=== PATIENT | female | born 1980 | race African-American/Black ===

== ENCOUNTER 2016-11-28 07:00 | Inpatient (IN) | payer BC ==
[~2016-11-28] VITALS: Ht 162.6 cm; Wt 60.3 kg
--- NOTE | ~2016-11-28 | HP ---
Unit #: [id number] #: [id number] Patient: BRIANNE BLACKMON [id number] [facility] [address] [place] [address] [id number] MR#: [id number] NAME: BRIANNE BLACKMON ROOM: P122 Age: 36 Sex: F Admission Date: 11/28/2016 : 1980 Attending Physician: Jese Young M.D. Admitting Physician: Jese Young M.D. Primary Care Physician: Generic Doctor Not In System HISTORY AND PHYSICAL NOTE Brianne is a 36 year old who was admitted and discharged within the first 24 hours. She was not seen for an H and P. Dictated by... Grazyna Vazquez P.A.-C. for Carlos Alberto Sotelo/shawnee TD: 11/28/2016 21:20 JOB #: [id number] HISTORY AND PHYSICAL Page 1 of 1 X Grazyna Vazquez HISTORY AND PHYSICAL
--- NOTE | ~2016-11-28 | PA ---
Unit #: [id number] #: [id number] Patient: BRIANNE BLACKMON [id number] [facility] [address] [place] [address] [id number] MR#: [id number] NAME: BRIANNE BLACKMON ROOM: [facility] Age: 36 Sex: F Admission Date: 11/28/2016 : 1980 Date of Assessment: 11/28/2016 Attending Physician: Jese Young M.D. Admitting Physician: Jese Young M.D. Primary Care Physician: Generic Doctor Not In System PSYCHIATRIC ASSESSMENT IDENTIFYING INFORMATION The patient is a 36-year-old female admitted in what appears to be a psychotic depression. CHIEF COMPLAINT None given. INFORMANT(S) Patient and chart, reliability is fair. HISTORY OF PRESENT ILLNESS The patient is a 36-year-old female who was admitted after she had presented to this facility reporting "dark clots." During today's interview, the patient reports that she "will not be here much longer" and is reporting some vague suicidal ideation. The patient also reports feeling "scared about the world." The patient has recently been in the intensive outpatient program at the [facility], and her current psychotropic medications include Prozac and trazodone. The patient exhibits disorganization of thought, thought-blocking, and difficulty processing information during today's interview. She denies prior psychiatric hospitalization apart from her treatment at the [facility]. PAST PSYCHIATRIC HISTORY As above. PAST MEDICAL HISTORY The patient suffers from hypertension. MEDICATIONS Doxycycline, vitamin D, Norvasc, hydrochlorothiazide, trazodone, Prozac. ALLERGIES None. FAMILY HISTORY Noncontributory. SOCIAL HISTORY The patient lives with her 17 and 19 years old sons. She has been employed at [employer]. She denies she uses any psychoactive substances. MENTAL STATUS EXAMINATION Unit #: [id number] #: [id number] Patient: BRIANNE BLACKMON Examination at this time reveals the patient to be a thin female appearing her stated age. She is in no apparent physical distress at the time of the examination. She is awake, alert, and oriented in all spheres. Her mood is dysphoric, her affect is flat. Speech is impoverished. There are no gross deficits in memory or cognition noted. Intelligence is judged to be in the average range based on fund of knowledge. The patient is cooperative throughout the interview. She is currently voicing positive suicidal ideation. She denies homicidal ideation. She reports positive somatic delusional thinking as well as some restorationism delusionality. She also exhibits disorganization of thought and thought-blocking. Her judgment and insight appear to be significantly impaired. ASSETS AND LIABILITIES The patient's assets are to be assessed. Liabilities: To be assessed. DIAGNOSTIC IMPRESSION 1. Major depressive disorder, severe, recurrent, with psychotic features. 2. Hypertension. TREATMENT PLAN We have learned that the patient's son is an employee of this facility and did in fact come into contact unknowingly with the patient earlier today. This has caused great embarrassment for both individuals. We will look to transfer the patient to the [facility] in a timely fashion as possible given the fact that she was already involved in the intensive outpatient program at that facility. In the meantime, I will start Zyprexa 10 mg at bedtime to address the patient's psychotic symptoms, and I have added Zydis should the patient become agitated which appears unlikely. Dictated by... Jese Young M.D. Kathi TD: 11/28/2016 14:49 JOB #: [id number] PSYCHIATRIC ASSESSMENT Page 1 of 1 X Jese Young MD X PSYCHIATRIC ASSESSMENT
--- NOTE | ~2016-11-28 | DS ---
Unit #: [id number] #: [id number] Patient: BRIANNE BLACKMON [id number] [facility] [address] [place] [address] [id number] MR#: [id number] NAME: BRIANNE BLACKMON ROOM: [facility] Age: 36 Sex: F Admission Date: 11/28/2016 : 1980 Discharge Date: 11/28/2016 Attending Physician: Jese Young M.D. Primary Care Physician: Generic Doctor Not In System DISCHARGE SUMMARY REASON FOR ADMISSION The patient is a 36-year-old female admitted to the [address] [place] [address] Unit in a psychotic depression. HOSPITAL COURSE The patient was admitted to the [address] [place] [address] Unit and placed on suicide precautions. Home medications were continued, and the patient was begun on Zyprexa 10 mg at h.s. It was learned that the patient's son is an employee at this facility and the two had come into contact with one another accidentally on the morning of 11/28/2016. For this reason, the patient requested discharge to the [facility] where she had already been involved in the intensive outpatient program, and discharge was ordered. FINAL DIAGNOSES 1. Major depressive disorder, severe, with psychotic features. 2. Hypertension. DISPOSITION ON DISCHARGE The patient was transferred to the [facility]. DISCHARGE MEDICATIONS 1. Prozac 20 mg daily for depression. 2. Zyprexa 10 mg at h.s. for psychosis. 3. Trazodone 50 mg at h.s. for insomnia. 4. Hydrochlorothiazide 12.5 mg daily for hypertension. 5. Norvasc 10 mg daily for hypertension. 6. Vitamin D 50,000 units weekly for vitamin D supplementation. 7. Doxycycline 100 mg twice daily ending 11/2016. FOLLOWUP The patient will follow through the auspices of the [facility]. Dictated by... Jese Young M.D. CB/warren TD: 11/29/2016 08:01 JOB #: [id number] Unit #: [id number] #: [id number] Patient: BRIANNE BLACKMON DISCHARGE SUMMARY Page 1 of 1 X Jese Young MD X DISCHARGE SUMMARY
== END 2016-11-28 18:23 | disposition home or self-care (01) | DRG 885 ==
LOC: P1S 10:50
DX: F33.3 Major depressive disorder, recurrent, severe with psychotic symptoms (principal); R45.851 Suicidal ideations; I10 Essential (primary) hypertension